=== PATIENT | male | born 1950 | race Caucasian/White ===

== ENCOUNTER 2023-02-03 17:21 | Emergency (ER) | payer MEDICARE, SELFPAY ==
[2023-02-03] VITALS (9 sets, daily range): BP systolic 167–188; BP diastolic 77–90; PULSE 59–72; RESP 13–18; TEMP 37; O2SAT 99–100; BMI 21.8
--- NOTE | 2023-02-03 19:19 | ED_ITS ---
HPI - GI Bleed General Chief complaint: GI Bleed Stated complaint: states rectal bleeding Time Seen by Provider: 02/03/23 18:45 Source: patient Mode of arrival: Ambulatory History of Present Illness HPI Narrative: Patient is a 72-year-old male presenting today with 1 day of rectal bleeding. He was seen earlier today by a walk-in clinic who referred him to the ED for further workup. He states that he had a colonoscopy in 2016 where they were precancerous polyps he has not had a follow-up colonoscopy since. He states that he had some rectal bleeding this morning but it has progressively got and worse. He denies any pain. No nausea vomiting or fever. He says that he is had significant fatigue and has had weight loss over the last 5 years but nothing significant also last few months. He does not have a primary care provider he takes no medications not on antiplatelet or anticoagulation medication. He denies any dizziness or lightheadedness. Related Data Allergies Allergy/AdvReac Type Severity Reaction Status Date / Time No Known Drug Allergies Allergy Verified 02/03/23 17:42 Review of Systems Review of Systems ROS Unobtainable: All systems reviewed & are unremarkable except as noted in HPI and below Patient History Social History Smoking Status: Never smoker Smoking Status: Never smoker alcohol intake frequency: 0-2 drinks per day Substance Use Type: does not use Exam Initial Vital Signs Initial Vital Signs: Vital Signs Temperature 98.6 F 02/03/23 17:34 Pulse Rate 66 02/03/23 17:34 Respiratory Rate 18 02/03/23 17:34 Blood Pressure 178/89 H 02/03/23 17:34 Pulse Oximetry 100 02/03/23 17:34 Oxygen Delivery Method Room Air 02/03/23 17:34 GENERAL: 72-year-old male slow answer appears thin HEENT: Head atraumatic,EOMI, pupils reactive, face symmetric, moist mucous membranes CARDIOVASCULAR: Regular rate and rhythm without murmurs, rubs or gallops. RESPIRATORY: Breath sounds equal bilaterally, no wheezes rales or rhonchi. ABDOMEN: Soft, nontender. Normoactive bowel sounds all 4 quadrants. No guarding or rebound. RECTAL: No hemorrhoids no masses hemoccult positive : No CVA tenderness EXTREMITIES: Normal range of motion, no clubbing or edema. Neurovascularly intact NEUROLOGICAL: Alert and oriented x4.Normal gait and speech. Mechanical Planner strength equal bilaterally SKIN: Warm, dry, no laceration, no petechiae, no rashes or lesions. Course Orders Ordered: ED Orders 02/03/23 18:51 EKG-12 Lead Stat 02/03/23 19:15 Complete Blood Count AUTO DIFF Stat Comprehensive Metabolic Panel Stat Lactate (Lactic Acid) Stat PTT Partial Thromboplastin Kaden Stat Prothrombin Time INR Stat Troponin & CK Cardiac Panel Stat 02/03/23 22:00 Hemoglobin and Hematocrit Stat 02/03/23 22:20 Troponin I Stat Vital Signs Vital signs: Vital Signs - 8 hr 02/03/23 19:06 02/03/23 19:06 02/03/23 19:30 Pulse Rate 67 Respiratory Rate 13 Blood Pressure 188/82 H 187/84 H Pulse Oximetry 100 02/03/23 19:30 02/03/23 20:00 02/03/23 20:00 Pulse Rate 61 61 Respiratory Rate 18 13 Blood Pressure 167/83 H Pulse Oximetry 02/03/23 20:30 02/03/23 20:30 02/03/23 21:09 Pulse Rate 67 59 L Respiratory Rate 15 Blood Pressure 179/77 H Pulse Oximetry 02/03/23 21:30 02/03/23 23:48 02/03/23 23:49 Pulse Rate 59 L 68 Respiratory Rate 13 Blood Pressure 187/90 H Pulse Oximetry 02/03/23 23:49 02/04/23 00:00 02/04/23 00:00 Pulse Rate 72 62 Respiratory Rate 15 9 L Blood Pressure 173/89 H Pulse Oximetry 99 100 02/04/23 00:30 02/04/23 00:30 Pulse Rate 68 Respiratory Rate 12 Blood Pressure 189/88 H Pulse Oximetry 100 MDM - GI Bleed Lab Data 02/03/23 22:00 02/03/23 19:15 Labs: Lab Results 02/03/23 02/03/23 02/03/23 Range/Units 19:15 19:15 19:15 WBC 4.7 (4.5-11.0) X10^3/uL RBC 4.47 L (4.5-5.9) X10^6/uL Hgb 14.0 (13.5-17.5) g/dL Hct 41.6 (41-53) % MCV 93.1 (80-100) fL MCH 31.4 (26-34) PG MCHC 33.8 (30-36) % RDW 13.2 (11.6-14.8) % Plt Count 164 (150-400) X10^3/uL Neut % (Auto) 58.2 (50-75) % Lymph % (Auto) 29.2 (25-40) % [place] % (Auto) 8.8 (3-14) % Eos % (Auto) 2.8 (2-4) % Baso % (Auto) 1.0 (0-2) % Neut # (Auto) 2700 (3067-6790) /uL Lymph # (Auto) 1400 (2207-6423) /uL [place] # (Auto) 400 (0-900) /uL Eos # (Auto) 100 (0-450) /uL Baso # (Auto) 0 (0-100) /uL PT 11.8 (10.1-12.7) SECONDS INR 1.0 (0.9-1.3) APTT 30 (26-36) SECONDS Sodium 139 (137-145) mmol/L Potassium 4.4 (3.4-5.1) mmol/L Chloride 103 (98-107) mmol/L Carbon Dioxide 27 (22-32) mmol/L BUN 26 H (9-20) mg/dL Creatinine 0.63 L (0.66-1.25) mg/dL Estimated GFR > 60 (>60) mL/min BUN/Creatinine Ratio 41.3 H (6-22) Glucose 84 (80-110) mg/dL Lactate (0.7-2.1) mmol/L Calcium 9.7 (8.4-10.2) mg/dL Total Bilirubin 0.8 (0.2-1.3) mg/dL AST 29 (17-59) IU/L ALT 19 (<50) IU/L Alkaline Phosphatase 52 (38-126) U/L Total Creatine Kinase (55-170) U/L CK-MB (CK-2) CK-MB (CK-2) Rel Index Troponin I (0.01-0.034) ng/mL Total Protein 7.1 (6.3-8.2) g/dL Albumin 4.5 (3.5-5.0) g/dL Globulin 2.6 (1.7-4.1) g/dL Albumin/Globulin Ratio 1.7 (1.0-2.8) 02/03/23 02/03/23 02/03/23 Range/Units 19:15 19:15 22:00 WBC (4.5-11.0) X10^3/uL RBC (4.5-5.9) X10^6/uL Hgb 13.8 (13.5-17.5) g/dL Hct 40.0 L (41-53) % MCV (80-100) fL MCH (26-34) PG MCHC (30-36) % RDW (11.6-14.8) % Plt Count (150-400) X10^3/uL Neut % (Auto) (50-75) % Lymph % (Auto) (25-40) % [place] % (Auto) (3-14) % Eos % (Auto) (2-4) % Baso % (Auto) (0-2) % Neut # (Auto) (6235-4850) /uL Lymph # (Auto) (3314-8907) /uL [place] # (Auto) (0-900) /uL Eos # (Auto) (0-450) /uL Baso # (Auto) (0-100) /uL PT (10.1-12.7) SECONDS INR (0.9-1.3) APTT (26-36) SECONDS Sodium (137-145) mmol/L Potassium (3.4-5.1) mmol/L Chloride (98-107) mmol/L Carbon Dioxide (22-32) mmol/L BUN (9-20) mg/dL Creatinine (0.66-1.25) mg/dL Estimated GFR (>60) mL/min BUN/Creatinine Ratio (6-22) Glucose (80-110) mg/dL Lactate 1.0 (0.7-2.1) mmol/L Calcium (8.4-10.2) mg/dL Total Bilirubin (0.2-1.3) mg/dL AST (17-59) IU/L ALT (<50) IU/L Alkaline Phosphatase (38-126) U/L Total Creatine Kinase 99 (55-170) U/L CK-MB (CK-2) TNP CK-MB (CK-2) Rel Index TNP Troponin I < 0.012 (0.01-0.034) ng/mL Total Protein (6.3-8.2) g/dL Albumin (3.5-5.0) g/dL Globulin (1.7-4.1) g/dL Albumin/Globulin Ratio (1.0-2.8) Point of Care Testing Stool Occult Blood Positive Urine Dip Bedside Urine Glucose Negative Bedside Urine Bilirubin - Negative Bedside Urine Ketone + 15 Urine Specific [place] 1.03 Bedside Urine Occult Blood - Negative Bedside Urine pH 6.0 Bedside Urine Protein - Negative Bedside Urine Urobilinogen - Negative Bedside Urine Nitrite - Negative Bedside Urine Leukocytes - Negative Esterase Imaging Data CT scan - chest: Radiologist's Impression: Report is from [facility] due to CT down time Moderate Stool distention consistent with constipation no suspicious colonic wall thickening lesions identified Hypoattenuating lesion in the right hepatic lobe is suggested of a cavernous hemangioma. Consider further evaluation with liver protocol MRI or comparison with prior Outside study bladder stone with adjacent diverticula ECG Data Interpretation: Sinus rhythm rate 63 VT interval 186 QRS [address] changes T-wave inversions MDM Narrative Medical decision making narrative: Patient 72-year-old male presents today with 1 day of rectal bleeding. He appears chronically ill slightly thin. Blood work is overall reassuring without significant drop in hemoglobin. Concern with no rectal bleeding and history of precancerous polyps without a follow-up colonoscopy is cancer. CT chest abdomen pelvis is done. Unfortunately due to CT down time patient had to be sent to outside facility and returned. CT is negative no significant further rectal bleeding in the emergency department. Vitals are stable. He does not have a primary care provider strongly encouraged him to follow up and have a repeat colonoscopy. There is no evidence of infection. Patient reports fatigue but no cause of fatigue found in the emergency department. He is noted to be mildly hypertensive without history of hypertension he has no sign of end-organ damage. Discharge Plan Departure Patient Disposition: Home Clinical Impression: Rectal bleed Instructions: DI for Rectal Bleeding Activity Restrictions/Additional Instructions: *You have been diagnosed with rectal bleeding *What to do: You need a colonoscopy, at this time blood work is reassuring and her CT does not show any abnormality *Continue to take medications as directed *Follow up with your primary care provider in 2-3 days or call [phone] *Return to ER if you should have persistent rectal bleeding dizziness lightheadedness passing out or any new, worsening or concerning symptoms Stand Alone Forms: Patient Portal/API
--- NOTE | 2023-02-03 19:35 | PC.NURSE ---
Pt reports dom red blood that was separate from stool in BM this morning, then blood on toilet paper all day. States he has had a hemorrhoid and fatigue for approx one year. Denies SOB, dizziness, CP, pain, or any other symptoms.
[2023-02-03 19:36] LABS: Add Manual Diff / Slide Review NO; Basophils Absolute Auto 0 /uL (0-100); Eosinophils Absolute Auto 100 /uL (0-450); Eosinophils Percent Auto 2.8 % (2-4); Hematocrit 41.6 % (41-53); Lymphocytes Absolute Auto 1400 /uL (1100-4500); Lymphocytes Percent Auto 29.2 % (25-40); Mean Corpuscular HGB Conc 33.8 % (30-36); Mean Corpuscular Hemoglobin 31.4 PG (26-34); Mean Corpuscular Volume 93.1 fL (80-100); Monocytes Absolute Auto 400 /uL (0-900); Monocytes Percent Auto 8.8 % (3-14); Neutrophils Absolute Auto 2700 /uL (1500-7000); Neutrophils Percent Auto 58.2 % (50-75); Platelet Count 164 X10^3/uL (150-400); Red Blood Cell Count 4.47 X10^6/uL (4.5-5.9); Red Cell Distribution Width 13.2 % (11.6-14.8); White Blood Cell Count 4.7 X10^3/uL (4.5-11.0)
[2023-02-03 19:46] LABS: Prothrombin Time 11.8 SECONDS (10.1-12.7)
[2023-02-03 19:49] LABS: PTT Partial Thromboplastin Tim 30 SECONDS (26-36)
[2023-02-03 19:52] LABS: Alanine Aminotransferase 19 IU/L (<50); Albumin 4.5 g/dL (3.5-5.0); Albumin Globulin Ratio 1.7 (1.0-2.8); Alkaline Phosphatase 52 U/L (38-126); Aspartate Aminotransferase 29 IU/L (17-59); BUN Creatinine Ratio 41.3 (6-22); Bilirubin Total 0.8 mg/dL (0.2-1.3); Blood Urea Nitrogen 26 mg/dL (9-20); Calcium 9.7 mg/dL (8.4-10.2); Carbon Dioxide 27 mmol/L (22-32); Chloride 103 mmol/L (98-107); Estimated Glomerular Filt Rate > 60 mL/min (>60); Globulin 2.6 g/dL (1.7-4.1); Glucose 84 mg/dL (80-110); HEMOLYSIS 49 (0-50); Potassium 4.4 mmol/L (3.4-5.1); Sodium 139 mmol/L (137-145); Total Protein 7.1 g/dL (6.3-8.2)
[2023-02-03 19:55] LABS: Creatine Kinase 99 U/L (55-170)
[2023-02-03 20:04] LABS: Troponin I < 0.012 ng/mL (0.01-0.034)
--- NOTE | 2023-02-03 22:05 | PC.NURSE ---
Pt transported to [facility] for CT. Pt A&Ox4 on departure, denies new or concerning symptoms
[2023-02-03 22:13] LABS: Hemoglobin 13.8 g/dL (13.5-17.5)
--- NOTE | 2023-02-03 23:24 | PC.NURSE ---
Safe handoff report to ARMANDO Whelan.
[2023-02-04] VITALS: BP 173/89; PULSE 62; RESP 9; O2SAT 100
[2023-02-04 00:30] VITALS: BP 189/88; PULSE 68; RESP 12; O2SAT 100
== END 2023-02-04 00:56 | disposition home or self-care (01) ==
PROVIDERS: Emergency Provider Emergency Medicine
DX: K62.5 Hemorrhage of anus and rectum (principal); R79.89 Other specified abnormal findings of blood chemistry
CPT/HCPCS: 36415; 80053; 81003; 82272; 82550; 83605; 84484; 85014; 85018; 85025; 85610; 85730; 93005; 99284